=== PATIENT | female | born 1995 | race African-American/Black ===

== ENCOUNTER 2019-02-19 09:15 | Day surgery (SDC) | payer OTHER ==
[2019-02-10 16:13] VITALS: BMI 23.3
[2019-02-19 11:06] VITALS: PULSE 78; TEMP 98
[2019-02-19 11:46] VITALS: BP 124/78
--- NOTE | 2019-02-24 16:45 | PATH ---
Surgical Pathology Report Patient Name: EMILY EPPS [facility]. Rec. #: [id number] /Age/Gender: 1995 (Age: 23) / F Account: [id number] Location: [facility] AMBULATORY Taken: 02/19/2019 Received: 02/19/2019 Reported: 02/24/2019 Physicians: Mary King M.D. Specimen(s) Received A: SECOND PORTION DUODENUM B: ANTRUM C: GE JUNCTION Clinical History Nausea/vomiting Postoperative diagnosis: Gastritis, hiatal hernia Final Diagnosis A. DUODENUM, SECOND PORTION, BIOPSY: DUODENAL MUCOSA WITHOUT SIGNIFICANT PATHOLOGIC FINDINGS. B. GASTRIC ANTRUM, BIOPSY: GASTRIC ANTRAL MUCOSA WITH MILD CHRONIC GASTRITIS. IMMUNOHISTOCHEMICAL STAIN FOR H. PYLORI IS NEGATIVE. C. GE JUNCTION, BIOPSY: SQUAMOUS MUCOSA WITH SEVERE BASAL CELL HYPERPLASIA AND INCREASED INTRAEPITHELIAL EOSINOPHILS (FOCALLY UP TO 65 EOSINOPHILS IN ONE HPF). NO COLUMNAR MUCOSA, INTESTINAL METAPLASIA, OR DYSPLASIA IDENTIFIED. SEE COMMENT. Comment: Part C, biopsy shows increased intraepithelial eosinophils with up to 65 eosinophils/ in one HPF. Although findings are non-specific, and may be seen in severe gastrointestinal reflux disease; differential diagnoses include eosinophilic esophagitis, food allergy, drug hypersensitivity, hypereosinophilic syndrome, and connective tissue disease, among others. Suggest clinical and endoscopic correlation. Electronically Signed Mary Esquivel M.D. Gross Description A. Received in formalin, labeled "biopsy second portion of duodenum" is a french, irregular portion of soft tissue measuring 0.5 cm. in greatest dimension. The specimen is submitted in toto in one cassette. B. Received in formalin, labeled "biopsy gastric antrum" is a french, irregular portion of soft tissue measuring 0.3 cm. in greatest dimension. The specimen is submitted in toto in one cassette. C. Received in formalin, labeled "biopsy GE junction" is a french, irregular portion of soft tissue measuring 0.5 cm. in greatest dimension. The specimen is submitted in toto in one cassette. 02/21/2019 [facility]02/21/2019
== END 2019-02-19 11:48 | disposition home or self-care (01) ==
LOC: FASU 09:15
PROVIDERS: ATTEND Internal Medicine Gastroenterology
PROC: 0DB68ZX Excision of Stomach, Via Natural or Artificial Opening Endoscopic, Diagnostic (ICD-10-PCS; 2019-02-19)
PROC: 0DB48ZX Excision of Esophagogastric Junction, Via Natural or Artificial Opening Endoscopic, Diagnostic (ICD-10-PCS; 2019-02-19)
PROC: 0DB98ZX Excision of Duodenum, Via Natural or Artificial Opening Endoscopic, Diagnostic (ICD-10-PCS; principal; 2019-02-19 10:37)
DX: K29.50 Unspecified chronic gastritis without bleeding (principal); K44.9 Diaphragmatic hernia without obstruction or gangrene; K21.9 Gastro-esophageal reflux disease without esophagitis; Z91.018 Allergy to other foods
CPT/HCPCS: 84703; 88305-TC; 88342-TC